=== PATIENT | female | born 1960 | race Caucasian/White ===

== ENCOUNTER 2018-03-13 20:39 | Emergency (ER) | payer BC ==
[~2018-03-13] VITALS: Ht 165.1 cm; Wt 104.6 kg
[2018-03-13 21:25] LABS: CLARITY,URINE Cloudy (Clear); COLOR,URINE RED (Yellow); UA COLLECTION TYPE CLN CATCH MIDSTREAM
[2018-03-13 21:28] LABS: BACTERIA,URINE FEW /HPF (Neg); RBC,URINE TNTC /HPF (0-2); SQUAMOUS EPITHELIAL CELL,UR FEW /LPF (FEW); WBC,URINE NONE SEEN /HPF (0-4)
[2018-03-13 21:47] VITALS: BP 116/67
[2018-03-14] MEDS ORDERED: EST1T PO (00:18)
[2018-03-14] MEDS ORDERED: TRAM50TA2 PO (00:18)
[2018-03-14] MEDS ORDERED: BUPR150T8 PO (00:18)
[2018-03-14] MEDS ORDERED: MELO7.5T12 PO (00:18)
[2018-03-14] MEDS ORDERED: ONDA4TAB6 PO (00:54)
[2018-03-14] MEDS ORDERED: FLO0.4C PO (00:54)
[2018-03-14] MEDS ORDERED: HYDR-3965 PO (00:54)
== END 2018-03-13 21:48 | disposition home or self-care (01) ==
LOC: ER 20:40
DX: R31.9 Hematuria, unspecified (principal); Z90.710 Acquired absence of both cervix and uterus; Z85.89 Personal history of malignant neoplasm of other organs and systems
CPT/HCPCS: 81001; 99283

== ENCOUNTER 2018-03-13 23:23 | Emergency (ER) | payer BC ==
[~2018-03-13] VITALS: Ht 165.1 cm; Wt 104.2 kg
[2018-03-14 00:09] LABS: BASOPHILS % (AUTO) 0.4 % (0-1); EOSINOPHILS # (AUTO) 0.2 X10'3 (0-0.9); EOSINOPHILS % (AUTO) 2.8 % (0-6); HEMATOCRIT 37.1 % (35.0-45.0); HEMOGLOBIN 12.9 g/dl (12.0-16.0); LYMPHOCYTES # (AUTO) 2.5 X10'3 (1.1-4.8); LYMPHOCYTES % (AUTO) 30.5 % (21-51); MEAN CORPUSCULAR HEMOGLOBIN 31.8 PG (27.0-31.0); MEAN CORPUSCULAR HGB CONC 34.8 % (33.0-36.5); MEAN CORPUSCULAR VOLUME 91.4 FL (78-98); MEAN PLATELET VOLUME 8.1 FL (7.4-10.4); MONOCYTES # (AUTO) 0.8 X10'3 (0-0.9); MONOCYTES % (AUTO) 9.2 % (2-12); NEUTROPHILS # (AUTO) 4.7 X10'3 (1.8-7.7); NEUTROPHILS % (AUTO) 57.1 % (42-75); PLATELET COUNT 302 X10'3 (140-440); RED BLOOD COUNT 4.06 X10'6 (4.20-5.60); WHITE BLOOD COUNT 8.2 X10'3 (4.5-11.0)
[2018-03-14] MEDS ORDERED: morphine 4 MG/ML inj SYRINge IV STA (00:12)
[2018-03-14] MEDS ORDERED: ondansetron/PF 4mg/2ml inj IV STA (00:12)
[2018-03-14 00:18] LABS: PROTHROMBIN TIME 9.9 SECONDS (9.0-12.0)
[2018-03-14] MEDS ORDERED: BUPR150T8 PO (00:18)
[2018-03-14] MEDS ORDERED: TRAM50TA2 PO (00:18)
[2018-03-14] MEDS ORDERED: MELO7.5T12 PO (00:18)
[2018-03-14] MEDS ORDERED: EST1T PO (00:18)
[2018-03-14 00:21] LABS: ALANINE AMINOTRANSFERASE 26 U/L (12-78); ALBUMIN 3.4 G/DL (3.4-5.0); ALBUMIN/GLOBULIN RATIO 0.9 (1.1-1.5); ALKALINE PHOSPHATASE 58 IU/L (46-116); ANION GAP 5 (8-16); ASPARTATE AMINO TRANSFERASE 17 U/L (10-37); BILIRUBIN,TOTAL 0.2 MG/DL (0.1-1.0); BLOOD UREA NITROGEN 17 MG/DL (7-18); BUN/CREATININE RATIO 19.1 (6.6-38.0); CALCIUM 8.8 MG/DL (8.5-10.1); CHLORIDE 107 MMOL/L (99-107); CREATININE 0.89 MG/DL (0.40-0.90); GLUCOSE 142 MG/DL (70-104); LIPASE 120 U/L (73-393); POTASSIUM 4.2 MMOL/L (3.5-5.1); SODIUM 138 MMOL/L (135-145); TOTAL CARBON DIOXIDE 26.4 MMOL/L (24-32); TOTAL PROTEIN 7.3 G/DL (6.4-8.2); eGFR 66 ML/MIN
[2018-03-14] MEDS ORDERED: fentaNYL/PF 50MCG/1 ML 2ML syringe IV ONE (00:40)
[2018-03-14] MEDS ORDERED: ONDA4TAB6 PO (00:54)
[2018-03-14] MEDS ORDERED: FLO0.4C PO (00:54)
[2018-03-14] MEDS ORDERED: HYDR-3965 PO (00:54)
[2018-03-14 01:21] VITALS: BP 122/65
== END 2018-03-14 01:22 | disposition home or self-care (01) ==
LOC: ER 23:24
DX: N20.0 Calculus of kidney (principal); Z90.710 Acquired absence of both cervix and uterus; Z79.899 Other long term (current) drug therapy
CPT/HCPCS: 36415; 74176; 80053; 83690; 85025; 85610; 96374; 96375; 99285; J2270; J2405; J3010